=== PATIENT | male | born 1985 | race Caucasian/White ===

== ENCOUNTER → 2020-09-17 15:42 | Outpatient (CLI) | payer OTHER, SELFPAY ==
--- NOTE | ~2020-09-17 | MR_ITS ---
EXAMINATION: MR knee LT wo con DATE: 09/17/2020 16:21 INDICATION: Left knee pain TECHNIQUE: Magnetic resonance imaging (MRI) of the left knee was performed without intravenous contra st. Sequences included coronal PD-weighted FSE, coronal PD-weighted FS FSE, sagittal T2-weighted FSE , sagittal PD-weighted FS FSE and axial PD weighted fat saturated FSE. COMPARISON: None. FINDINGS: Medial compartment: Medial meniscus is normal. Scattered mild chondral surface irregularity in the medial compartment. Lateral compartment: Lateral meniscus is normal. Deep chondral fissuring without degenerative subchondral changes at the p osterior medial quadrant of the lateral tibial plateau. Patellofemoral compartment: Extensive full-thickness chondral fissuring with underlying subarticular edema at the trochlear most prominent extending in a band across the lateral trochlea to the trochlear groove. Additional full/ne ar full-thickness chondral fissuring without degenerative subchondral changes extending across the mi ddle third of the patella from the lateral facet across the apical ridge to the medial facet. Ligaments and tendons: Anterior and posterior cruciate ligaments are normal. The medial collateral ligament and fibular aries ateral ligament complex are normal. Mild distal quadriceps and proximal patellar tendinopathy. The vi sualized medial and lateral hamstring tendons as well as the iliotibial band are normal. Fluid: Small to moderate-sized left knee joint effusion. There is a suprapatellar plical band as well as and medial plical band which remains medial to the medial margin of the trochlea. No loose osteochondral bodies identified. Moderate-sized Vasquez's cyst. Osseous/other: No fracture or abnormal marrow replacing process. IMPRESSION: 1. Mild patellofemoral predominant tricompartmental osteoarthritis at the left knee with extensive mo derate and high-grade chondromalacia in the patellofemoral compartment and small region of moderate g rade chondromalacia along the posterior medial aspect of the lateral tibial plateau. 2. Mild tendinopathy of the distal quadriceps and proximal patellar tendons. 3. Small to moderate-sized left knee joint effusion and moderate-sized Vasquez's cyst. Reviewed, dictated and finalized at location A. 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 Mild patellofemoral predominant tricompartmental osteoarthritis at the left knee with extensive moderate and high-grade chondromalacia in the patellofemora l compartment and small region of moderate grade chondromalacia along the poste rior medial aspect of the lateral tibial plateau. 2. Mild tendinopathy of the distal quadriceps and proximal patellar tendons. 3. Small to moderate-sized left knee joint effusion and moderate-sized Vasquez's cyst.
== END ==
PROVIDERS: PCP Internal Medicine; Visit Provider Orthopaedic Surgery
DX: M25.562 Pain in left knee (principal); M17.12 Unilateral primary osteoarthritis, left knee; M94.262 Chondromalacia, left knee; S76.112A Strain of left quadriceps muscle, fascia and tendon, initial encounter; M25.462 Effusion, left knee; M71.22 Synovial cyst of popliteal space [Baker], left knee
CPT/HCPCS: 73721

== ENCOUNTER → 2020-10-06 13:40 | Outpatient (CLI) | payer OTHER, SELFPAY ==
--- NOTE | ~2020-10-06 | MR_ITS ---
. EXAMINATION: MR pituitary wo con DATE: 10/06/2020 14:14 INDICATION: Testicular hypofunction. TECHNIQUE: Magnetic resonance imaging (MRI) of the brain and brainstem was performed without intraven ous contrast. Whole-brain sequences included sagittal T1-weighted FSE, axial diffusion-weighted FS EP I, axial T2*-weighted GRE, axial T2-weighted FLAIR Propeller, and axial T2-weighted Propeller. Small [id number] sequences included sagittal and coronal T1-weighted FSE centered at the pituitary. Appa rent diffusion coefficient (ADC) maps were created. COMPARISON: None. FINDINGS: The pituitary is normal in size with height of 4 mm and concave superior margin. The infund ibulum is at the midline. There is no intracranial hemorrhage, acute infarction, or abnormal intracra nial mass lesion. The ventricles are normal in size. The paranasal sinuses are clear. The mastoid air cells are normal. The orbits are normal. IMPRESSION: 1. Normal brain. Normal pituitary. Reviewed, dictated and finalized at location A. [employer]
== END ==
PROVIDERS: PCP Internal Medicine; Visit Provider Clinical Nurse Specialist
DX: E29.1 Testicular hypofunction (principal)
CPT/HCPCS: 70551

== ENCOUNTER 2021-11-25 07:47 | Outpatient (CLI) | payer OTHER, SELFPAY ==
--- NOTE | 2021-12-09 15:09 | WPDHOMESLEEP ---
Sleep Study - Home Unattended Date of Study: 11/25/21 Ordering Provider: Maritza Bragg DO Interpreting Provider: Dona Reyes MD Home Sleep Study Type: Watch PAT Height: 1.83 m Weight: 116.12 kg Body Mass Index: 34.7 Neck Circumference (inches): 17 [place]: 0 Reason for Sleep Study Loud snoring, waking during the night Sleep History STUDY WAS PERFORMED December 08 and downloaded December 09, 2021. Carlos Arce is a 36 year old man with complains of loud snoring and waking up throughout the night. He does not awaken from sleep feeling short of breath or wake during the night with heartburn belching or coughing but he frequently snores loudly enough that others complain about it. He frequently has trouble sleeping with a cold. He does not wake up gasping for breath at night, does not sweat excessively at night or notice his heart pounding or beating irregularly at night. He does not fall asleep during the day, does not fall asleep involuntarily or while driving. He does not have loss of muscle tone with strong emotion. He has daytime problems frequently due to his excessive sleepiness. 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 He does not feel paralyzed on waking or falling asleep. He frequently has vivid dreamlike scenes upon awakening or falling asleep. He does not feel afraid to go to sleep. He occasionally has nightmares. He frequently remembers his dreams. He occasionally has racing thoughts, feelings of sadness depression and frequently has anxiety. He does not have muscular tension. He constantly notices parts of his body jerking and constantly kicks at night. He frequently has crawling aching feelings in his legs. He frequently has leg pain during the night. He does not have morning jaw pain, does not grind his teeth during sleep, is not bothered by pain during the day or awakened by pain at night. He occasionally wakes up feeling stiff in the morning with sore achy muscles and pain in the neck and spine. He takes sedatives, has sexual problems, memory problems, concentration difficulties and depression. Normal bedtime is 9:00 p.m. falling asleep within an hour, typically waking 6 times at night to urinate. It may take him up to 30 minutes or occasionally an hour to return to sleep. He wakes soon after falling asleep, as well as waking in the middle the night and the melt superintendant hours. He wakes between 5 am and 6 am, and estimates getting 5-6 hours of sleep at night. he does not take naps in the afternoon or evening. A short nap is not refreshing. He is usually drowsy in the morning for 3 hours or longer. He feels better in the evening compared to the morning. Habits: Never smoked tobacco. He does not use caffeine, alcohol or recreational drugs. [facility] Past Medical History Medical History (Updated 12/09/21 @ 15:24 by Dona Reyes MD) Anxiety Cyclical vomiting syndrome Effusion, left knee Hypogonadism in male Mild episode of recurrent major depressive disorder Steel plate present in upper extremity 1997 Substance abuse in remission Surgical History Surgical History (Updated 12/09/21 @ 15:17 by Dona Reyes MD) S/P left knee arthroscopy Family History Family History Mother Graves disease Father Acute myocardial infarction Social History Social History Social History: caffeine-soda(sugar free) Smoking status: Never smoker Alcohol intake: never Gender identity (if verbalized by the patient): Male Medications Home Medications Medication Instructions Recorded Confirmed Type clomiphene citrate 50 mg tablet 50 mg PO .qod #45 tablet 07/28/21 10/28/21 Rx sumatriptan succinate 6 mg/0.5 mL 6 mg SUBCUT ONCE #0.5 ml 08/04/21 10/28/21 Rx subcutaneous pen injector albuterol sulfate 90 mcg/actuation 2 inh INHALATION Q4H PRN #8.5 g 10/28/21 10/28/21 Rx aerosol inh
[2021-12-09 15:37] VITALS: BMI 34.7
== END 2021-12-09 14:24 | disposition home or self-care (01) ==
LOC: ANHCSM 07:54
PROVIDERS: PCP Internal Medicine; Visit Provider Family Medicine
DX: G47.10 Hypersomnia, unspecified (principal); R06.83 Snoring
CPT/HCPCS: 95800

== ENCOUNTER → 2021-11-25 09:08 | Outpatient (CLI) | payer OTHER, SELFPAY ==
--- NOTE | ~2021-11-25 | XR_ITS ---
XR chest 2V DATE: 11/25/2021 09:23 INDICATION: Chronic cough TECHNIQUE: 2 views COMPARISON: None FINDINGS: Normal heart size. No hilar or mediastinal enlargement. There is mild elevation left leaf of the diaphragm. No pulmonary infiltrate or consolidation, pleural effusion or pulmonary vascular congestion or pneumo thorax. IMPRESSION: No active cardiopulmonary disease Reviewed, dictated and finalized at location A. 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
== END ==
PROVIDERS: PCP Family Medicine; Visit Provider Family Medicine
DX: R05.3 Chronic cough (principal)
CPT/HCPCS: 71046

== ENCOUNTER 2021-12-17 14:06 | Outpatient (CLI) | payer OTHER, SELFPAY ==
--- NOTE | 2021-12-17 16:18 | WPDPFTINT ---
PFT Procedure Performed PFT Procedure Performed Spirometry with Pre/Post Bronchodilator Plethysmography (Lung Vol) Diffusing Cap (DLCO) Flow Vol Loop PFT Interpretation This is a pulmonary function test with pre and post-bronchodilator spirometry, plethysmography and diffusing capacity. The test was performed and results interpreted in accordance with the 2019 and 2005 ATS/ERS Task Force guidelines respectively using the Global Lung Function Initiative-2012 reference equations. Patient demonstrated good effort and cooperation. Reproducibility criteria were met. The quality of the pre bronchodilator spirometry maneuver was Grade B and post bronchodilator spirometry maneuver was Grade A. Findings: Spirometry: The contour of the inspiratory and expiratory flow tracing are normal. The pre bronchodilator FVC is 5.13 L, 90% predicted. The pre bronchodilator FEV1 is 4.40 L, 95% predicted. The pre bronchodilator FEV1: FVC ratio is 86%. The post bronchodilator FVC is 4.86 L, representing a 5% decrease. The post bronchodilator FEV1 is 4.25 L, representing a 3% decrease. The post bronchodilator FEV1: FVC ratio is 87%. Plethysmography: Total lung capacity is 8.01 L, 109% predicted. The functional residual capacity is 3.20 L, 87% predicted. The residual volume is 2.89 L, 155% predicted. Diffusing capacity: The diffusing capacity unadjusted for hemoglobin and carboxyhemoglobin is 29.1, 84% predicted. The diffusing capacity adjusted for alveolar volume is 5.14, 105% predicted. Impression: The spirometry is normal without evidence of an obstructive abnormality. There is no significant improvement after inhaling a single dose of albuterol. The total lung capacity is normal with and increased residual volume. This is an abnormal but nonspecific lung volume pattern. The diffusing capacity is normal. There are no prior studies for comparison
== END 2021-12-17 14:07 | disposition home or self-care (01) ==
LOC: ANHPFT 14:08
PROVIDERS: PCP Internal Medicine; Visit Provider Family Medicine
DX: R05.3 Chronic cough (principal); R06.00 Dyspnea, unspecified; U09.9 Post COVID-19 condition, unspecified
CPT/HCPCS: 94060; 94726; 94729

== ENCOUNTER 2021-12-23 07:52 | Outpatient (CLI) | payer OTHER, SELFPAY ==
--- NOTE | 2021-12-29 17:50 | WPDSLEEPSTUD ---
Sleep Study Date of Study: 12/23/21 Ordering Provider: Maritza Bragg DO Interpreting Physician: Dona Reyes MD Sleep Study Type: Polysomnogram Height: 1.83 m Weight: 113.398 kg Body Mass Index: 33.9 Neck Circumference (inches): 18 [place]: 2 Reason for Sleep Study * Home sleep test 12/08/2021 with an apnea hypopnea index 3.8, normal, with an elevated RDI 13.4. HIs symptoms were out of proportion to the fingdings on this study, and he returns for in-lab sleep study. Sleep History Carlos Arce is a 36 year old man with complains of loud snoring and waking up throughout the night. He does not awaken from sleep feeling short of breath or wake during the night with heartburn, belching or coughing but he frequently snores loudly enough that others complain about it. He frequently has trouble sleeping with a cold. He does not wake up gasping for breath at night, does not sweat excessively at night or notice his heart pounding or beating irregularly at night. He does not fall asleep during the day, does not fall asleep involuntarily or while driving. He does not have loss of muscle tone with strong emotion. He has daytime problems frequently due to his excessive sleepiness. 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 He does not feel paralyzed on waking or falling asleep. He frequently has vivid dreamlike scenes upon awakening or falling asleep. He does not feel afraid to go to sleep. He occasionally has nightmares. He frequently remembers his dreams. He occasionally has racing thoughts, feelings of sadness depression and frequently has anxiety. He does not have muscular tension. He constantly notices parts of his body jerking and constantly kicks at night. He frequently has crawling aching feelings in his legs. He frequently has leg pain during the night. He does not have morning jaw pain, does not grind his teeth during sleep, is not bothered by pain during the day or awakened by pain at night. He occasionally wakes up feeling stiff in the morning with sore achy muscles and pain in the neck and spine. He takes sedatives, has sexual problems, memory problems, concentration difficulties and depression. Normal bedtime is 9:00 p.m. falling asleep within an hour, typically waking 6 times at night to urinate. It may take him up to 30 minutes or occasionally an hour to return to sleep. 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 He wakes between 5 am and 6 am, and estimates getting 5-6 hours of sleep at night. he does not take naps in the afternoon or evening. A short nap is not refreshing. He is usually drowsy in the morning for 3 hours or longer. He feels better in the evening compared to the morning. Habits: Never smoked tobacco. He does not use caffeine, alcohol or recreational drugs. [facility] Past Medical History Medical History (Updated 12/09/21 @ 15:24 by Dona Reyes MD) Anxiety Cyclical vomiting syndrome Effusion, left knee Hypogonadism in male Mild episode of recurrent major depressive disorder Steel plate present in upper extremity 1997 Substance abuse in remission Surgical History Surgical History (Updated 12/09/21 @ 15:17 by Dona Reeys MD) S/P left knee arthroscopy Family History Family History Mother Graves disease Father Acute myocardial infarction Social History Social History Social History: caffeine-soda(sugar free) Smoking status: Never smoker Alcohol intake: never Gender identity (if verbalized by the patient): Male Medications Home Medications Medication Instructions Recorded Confirmed Type clomiphene citrate 50 mg tablet 50 mg PO .qod #45 tablet 07/28/21 10/28/21 Rx sumatriptan succinate 6 mg/0.5 mL 6 mg SUBCUT ONCE #0.5 ml 08/04/21 10/28/21 Rx subcutaneous pen injector albuterol sul
[2021-12-29 18:55] VITALS: BMI 33.9
== END 2021-12-24 06:26 | disposition home or self-care (01) ==
LOC: ANHCSM 07:53
PROVIDERS: PCP Internal Medicine; Visit Provider Family Medicine
DX: R06.83 Snoring (principal)
CPT/HCPCS: 95810

== ENCOUNTER → 2023-03-15 14:09 | Outpatient (CLI) | payer OTHER, SELFPAY ==
--- NOTE | ~2023-03-15 | MR_ITS ---
EXAMINATION: MR knee LT wo con DATE: 03/15/2023 14:46 INDICATION: Left knee pain TECHNIQUE: Magnetic resonance imaging (MRI) of the left knee was performed without intravenous contra st. Sequences included coronal PD-weighted FSE, coronal PD-weighted FS FSE, sagittal T2-weighted FSE , sagittal PD-weighted FS FSE and axial PD weighted fat saturated FSE. COMPARISON: 09/17/2020 FINDINGS: Medial compartment: Medial meniscus is normal. Deep chondral ulceration involving greater than 50% the cartilage thicknes s along the anterior to central weightbearing medial femoral condyle. Small region of mild underlying subarticular edema-like signal change along the anterior most margin of the weightbearing medial fem oral condyle. Lateral compartment: Lateral meniscus is normal. Subchondral ulceration without degenerative subchondral changes along the lateral tibial plateau and anterior weightbearing lateral femoral condyle. Patellofemoral compartment: There is deep chondral fissuring without degenerative subchondral changes at the patellar apical ridg e and involving significant portions of the medial and lateral patellar facets. Partial-thickness cho ndral ulceration with deep fissuring and mild underlying subarticular edema-like signal change at the lateral trochlea. Additional deep chondral ulceration and fissuring at the trochlear groove with 2.5 mm high central osteophyte at the cephalad aspect of the trochlear groove which projects beyond the articular cortex to comparable degree as the surrounding cartilage. Partial-thickness chondral ulcera tion with deep fissuring without degenerative subchondral changes at the medial trochlea. Ligaments and tendons: Anterior and posterior cruciate ligaments are normal. The medial collateral ligament and fibular aries ateral ligament complex are normal. Unchanged mild tendinopathy at the distal quadriceps and proximal patellar tendons. The visualized medial and lateral hamstring tendons as well as the iliotibial band are normal. Fluid: Physiologic amount of fluid in the joint space. No loose osteochondral bodies identified. Small Vasquez 's cyst. Osseous/other: Bone alignment is normal. No fracture or pathologic marrow replacing process. Suggestion of interval debridement of the previously seen medial plical band. IMPRESSION: 1. Still mild osteoarthritis with extensive moderate to high-grade chondromalacia in all 3 compartmen ts with the greatest progression in the medial and lateral compartments. 2. Small Vasquez's cyst. Reviewed, dictated and finalized at location A. IMPRESSION: 1. Still mild osteoarthritis with extensive moderate to high-grade chondromalac ia in all 3 compartments with the greatest progression in the medial and latera l compartments. 2. Small Vasquez's cyst.
== END ==
PROVIDERS: PCP Internal Medicine
DX: M25.562 Pain in left knee (principal); M17.12 Unilateral primary osteoarthritis, left knee; M94.262 Chondromalacia, left knee; M71.22 Synovial cyst of popliteal space [Baker], left knee
CPT/HCPCS: 73721

== ENCOUNTER 2024-08-25 10:43 | Outpatient (CLI) | payer OTHER, SELFPAY ==
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
== END 2024-08-25 10:44 | disposition home or self-care (01) ==
LOC: MICIMG 10:44
PROVIDERS: PCP Orthopaedic Surgery; Visit Provider Orthopaedic Surgery
DX: M71.22 Synovial cyst of popliteal space [Baker], left knee (principal); M17.12 Unilateral primary osteoarthritis, left knee
CPT/HCPCS: 73721

== ENCOUNTER 2025-07-03 14:36 | Outpatient (CLI) | payer OTHER, SELFPAY ==
--- NOTE | ~2025-07-03 | XR_ITS ---
[id number] Indication: pain x 1 month, no inj, no surg Comparison: None Findings: The vertebral heights are intact. No fracture or subluxation. The disc heights are intact. Soft tissues unremarkable Impression: No acute abnormality. Reviewed, dictated and finalized at location P. Impression: No acute abnormality.
== END 2025-07-03 14:37 | disposition home or self-care (01) ==
LOC: GOSHIMG 14:37
PROVIDERS: PCP Nurse Practitioner; Visit Provider Nurse Practitioner
DX: M54.2 Cervicalgia (principal)
CPT/HCPCS: 72040